=== PATIENT | female | born 1950 | race Caucasian/White ===

== ENCOUNTER → 2017-09-26 | Outpatient (CLI) | payer OTHER, MEDICARE ==
[~2017-09-26] MED LIST: ASPIR 8181 M1 PO; ATORVASTATIN CA40 MG PO; BYETTA PEN 11 PENINJ SQ; CLIMARA1 EAC2 TRANSDERM; COZAAR 25 MG TA25 M2 PO; FISH OIL 1,001000 M2 PO; LEVEMIR SQ; METFORMIN HCL500 MG PO; NOVOLOG100 UNIT/1 SQ; PAXIL10 MG; TRAMADOL 50 MG50 MG PO; VITAMIN D 5050000 I1 PO; WELLBUTRIN SR150 MG PO
== END ==
LOC: M.ULTRA 14:00
DX: E04.1 Nontoxic single thyroid nodule (principal); E11.9 Type 2 diabetes mellitus without complications

== ENCOUNTER → 2017-10-16 | Outpatient (CLI) | payer OTHER, MEDICARE ==
--- NOTE | 2017-10-18 17:09 | PATH ---
[address] [address] PATHOLOGY RPT PROCEDURE Name: CONCHA SANTOS Room: [facility] Antoine#: [id number] Admission: 10/16/17 Date of : 50 Discharge: Report #: [id number] Path Case #: [id number] [facility] Accession Number: [id number] . 01 Material submitted: . RIGHT THYROID NODULE . 01 Clinical history: . 3.7 x 2.8 x 3.4 cm Right thyroid nodule . 02 Diagnosis: Right thyroid nodule, image-guided core biopsies: - Most consistent with benign adenomatoid nodule. See comment. [facility] . 02 Comment: The tissue cores show fragments of thyroid follicular tissue which shows moderate variability in cellularity from small follicles to larger follicles without papillary features seen. Separate fragments of fibrous tissue are present, however, there is no definite capsule in association with thyroid tissue seen. The accompanying thyroid FNA specimen ([id number]) shows similar features. Reviewed with Dr. Abimael Bradshaw who agrees with the diagnosis. . (AISSATOU:mml; 10/18/17) . 02 Electronically signed: . Neil Castle MD, Pathologist NPI- [id number] . 01 Gross description: . Received in formalin labeled "Concha Santos, right thyroid," are multiple fragments of needle cores of martinez soft tissue measuring 1.3 x 0.4 x 0.1 cm in aggregate dimensions. The specimen is filtered and entirely submitted in cassette A1. (TSD; 10/16/2017) TOB/TOB . 02 Pathologist provided ICD-10: E04.1 . 02 CPT . 096251 Performed at: [address] [id number] MD Piter Silverio MD Phone: [phone] [address] [address] PATHOLOGY RPT PROCEDURE Name: CONCHA SANTOS Room: [facility]#: [id number] Admission: 10/16/17 Date of : 50 Discharge: Report #: [id number] Path Case #: [id number] Performed at: [address] [id number] MD Neil Castle MD Phone: [phone]
--- NOTE | 2017-10-30 14:07 | PATH ---
[address] [address] PATHOLOGY RPT PROCEDURE Name: CONCHA SANTOS Room: [facility]#: [id number] Admission: 10/16/17 Date of : 50 Discharge: Report #: [id number] Path Case #: [id number] Note [facility] Accession Number: [id number] TESTS RESULT FLAG UNITS REF RANGE LAB Clinician Provided Cytology Information No. of containers..01 Other (Miscellaneous) Source: RT THYROID DIAGNOSIS: RT THYROID Most consistent with benign adenomatoid nodule [place] CATEGORY II THIS INTERPRETATION INCLUDES EVALUATION OF A CELL BLOCK. Reviewed with Dr. Abimael Bradshaw, who agrees with the diagnosis. Pathologist ICD10: 02 R89.6 Signed out by: 02 Neil Castle MD, Pathologist NPI- [id number] Performed by: Kali Hay, Heating And Ventilating Worker ([facility]) Gross description: 01 10ML, RED, CLOUDY /LCS FLAG LEGEND: L-Low Normal,H-High Normal,LL-Alert Low,HH-Alert High <-Panic Low,>-Panic High,A-Abnormal,AA-Critical Abnormal Performed at: [address] [place] [address] Piter Silverio MD, [address] [place] [address] [address], [place] [address] Neil Castle MD, A duplicate report has been generated due to demographic updates. Performed at: [address], [place], [place] [id number] MD Piter Silverio MD Phone: [phone]
== END | disposition home or self-care (01) ==
LOC: M.ULTRA 10-12 08:30
DX: E04.1 Nontoxic single thyroid nodule (principal); I10 Essential (primary) hypertension; E11.9 Type 2 diabetes mellitus without complications; E78.5 Hyperlipidemia, unspecified; M81.0 Age-related osteoporosis without current pathological fracture; Z88.2 Allergy status to sulfonamides; Z88.0 Allergy status to penicillin; Z79.82 Long term (current) use of aspirin; Z98.890 Other specified postprocedural states; Z79.899 Other long term (current) drug therapy; Z98.51 Tubal ligation status

== ENCOUNTER → 2018-01-16 | Outpatient (CLI) | payer OTHER, MEDICARE | LOC: M.RAD 12:04 | DX: M53.3 Sacrococcygeal disorders, not elsewhere classified (principal) ==